=== PATIENT | male | born 1990 | race Caucasian/White ===

== ENCOUNTER 2021-01-19 00:44 | Observation (INO) | payer SELFPAY ==
[2021-01-19] VITALS (7 sets, daily range): BP systolic 102–144; BP diastolic 64–81; PULSE 67–132; RESP 18–22; TEMP 36.1–37; O2SAT 97–98; BMI 24.0
--- NOTE | ~2021-01-19 | XR_ITS ---
EXAMINATION: XR chest 1V portable DATE: 01/19/2021 01:12 INDICATION: Chest pain. TECHNIQUE: A single frontal view of the chest was obtained. COMPARISON: None. FINDINGS: The chest demonstrates clear lungs without pneumonia, pleural effusion, or pneumothorax. Th e heart size is normal. IMPRESSION: 1. No acute cardiopulmonary disease. Reviewed, dictated and finalized at location A.
--- NOTE | 2021-01-19 00:48 | ECG_ITS ---
Measurements Intervals [place] Rate: 98 P: 75 IL: 139 QRS: 66 QRSD: 90 T: 62 QT: 323 QTc: 413 Interpretive Statements SINUS RHYTHM INCOMPLETE RIGHT BUNDLE BRANCH BLOCK MINIMAL Q WAVES- ANTEROLAT/INF LEADS BORDERLINE ECG Electronically Signed On 01-19-2021 9:09:18 CDT by Jovany Loera D.O.
[2021-01-19] MEDS: LORazepam INJ (*CRX) 2 MG/ML VIAL IV PUSH (01:05)
--- NOTE | 2021-01-19 01:30 | PC.NURSE ---
Pt. admits to using speed but states it was a few days ago. Pt. more cooperative c care p given ativan and able to relax at this time.
--- NOTE | 2021-01-19 01:31 | ED.GENADULT ---
HPI - General Adult General Chief complaint: Chest Pain Stated complaint: Chest pain Source: patient Mode of arrival: ambulatory Limitations: altered mental status History of Present Illness HPI narrative: Tanner is a 31M with a PMH of polysubstance abuse and a heart condition (unsure what it is) that presented with chest pain. He appears to be under the influence rhythmically moving, trouble answering questions, limited attention span and occasionally screaming. He reports to using speed 3 days ago. As best as I can gather his chest pain started last week while playing [employer] with his son. It is described as a sharp pain in his chest that does not radiate. It has no relation to food or activity. He admits nausea and vomiting but no lightheadedness or syncope. No fevers or chills. Related Data Home Medications Medication Instructions Recorded Confirmed Unable to Obtain Home Medications 01/19/21 01/19/21 Allergies Allergy/AdvReac Type Severity Reaction Status Date / Time No Known Allergies Allergy Verified 01/19/21 01:33 Review of Systems Constitutional: Constitutional: Denies chills, Denies fatigue, Denies fever(s) and Denies weakness Eyes: Eyes: Reports no additional eye complaints ENT: Reports system reviewed and no additional complaints, except as documented Cardiovascular: Cardiovascular: Reports as per HPI Respiratory: Respiratory: Denies chest congestion, Denies cough, Reports dyspnea and Denies wheezing Gastrointestinal: Gastrointestinal: Reports no additional gastrointestinal complaints Genitourinary: Genitourinary: Reports no additional male genitourinary complaints Musculoskeletal: Musculoskeletal: Reports no additional musculoskeletal complaints Integumentary/Breasts: Skin/Breast: Reports system reviewed and no additional complaints, except as docu Neurologic: Reports system reviewed and no additional complaints, except as documented Psychiatric: Psychiatric: Reports no additional psychiatric complaints Endocrine: Endocrine: Reports no additional endocrine complaints Hematologic/Lymphatic: Hematologic/Lymphatic: Reports no additional hematologic/lymphatic complaints Allergic/Immunologic: Allergic/Immunologic: Reports no additional allergic/immunologic complaints Exam Const: General: alert and confusion Orientation/consciousness: patient oriented x3 Limitations: altered mental status Other: Was screaming unable to sit still holding his chest with a very short attention span until he was given Ativan at which point he calmed down. HENMT: Other: Normocephalic, atraumatic EOMI Eyes: Pupils: Equal, round and reactive pupils present Neck: Neck: normal visual inspection Chest: Chest palpation & inspection: normal inspection of the chest Other: Every time he belched (which was quite often) he grabbed his chest in pain Resp: Effort & Inspection: normal respiratory effort Auscultation: clear to auscultation bilaterally Cardio: Rate: tachycardic Rhythm: regular rhythm Heart sounds: no murmurs GI: Inspection: non-distended GI Palp: Yes Soft to palpation, No Tenderness to palpation present (GI) and No Guarding due to palpation present (GI) Skin: General skin exam: normal color Rashes: no rashes Neuro: General: patient oriented x3 and moves all extremities Extrem: General: normal to inspection Psych: Appearance: disheveled Affect: Anxious affect present Other: Short attention span and went of on many tangents. Course Course Emergency Course: Tanner was given ativan as he was very agitated and could not comply with any medical treatment. After this his EKG was done which showed NSR with a rate of 98, normal axis, and no ST elevation/depression CBC showed mild microcytic anemia. Chemistries were normal. CXR were read as Lungs are clear. He continued to have some chest pain on and off as well as some very dark emesis. Given his emesis, apparent intoxication despite a negative UD
[2021-01-19] MEDS: ONDANSETRON INJ 4 MG/2 ML VIAL IV PUSH (01:32)
[2021-01-19] MEDS: MAG HYDROX/ALUMINUM HYD/SIMETH 30 ML, PHENobarb/HYOSCY/ATROPINE/SCOP 32.4 MG, LIDOCAINE... PO (01:32)
[2021-01-19 01:45] LABS: Basophils Absolute Auto 0.05 K/mm3 (0.00-0.10); Basophils Percent Auto 0.6 % (0.0-1.0); Eosinophils Percent Auto 3.5 % (1.0-6.0); Hematocrit 34.5 % (40.0-54.0); Hemoglobin 11.5 g/dL (14.0-18.0); Immature Granulocyte Absolute 0.04 K/mm3 (0.00-0.00); Immature Granulocyte Percent A 0.5 % (0.0-0.0); Lymphocytes Absolute Auto 2.21 K/mm3 (1.10-4.50); Lymphocytes Percent Auto 25.9 % (18.0-42.0); Mean Corpuscular HGB Conc 33.3 g/dL (32.0-36.0); Mean Corpuscular Hemoglobin 27.6 pg (27.0-31.0); Mean Corpuscular Volume 82.7 fL (78.0-102.0); Mean Platelet Volume 10.2 fl (8.7-11.0); Monocytes Absolute Auto 1.05 K/mm3 (0.10-0.90); Monocytes Percent Auto 12.3 % (2.0-11.0); Neutrophils Absolute Auto 4.9 K/mm3 (1.7-7.2); Neutrophils Percent Auto 57.2 % (50.0-70.0); Platelet Count Result 178 K/mm3 (150-420); Red Blood Count 4.17 M/mm3 (4.70-6.10); Red Cell Distribution Width 12.8 % (11.6-14.4); White Blood Count 8.5 K/mm3 (4.8-10.8)
[2021-01-19 01:56] LABS: INR 1.1; Prothrombin Time 11.4 Seconds (9.50-12.10)
[2021-01-19 02:02] LABS: Alanine Aminotransferase 74 U/L (16-63); Albumin Level 3.7 g/dL (3.4-5.0); Alkaline Phosphatase 70 U/L (46-116); Anion Gap 6 mmol/L (8-16); Aspartate Amino Transferase 39 U/L (15-37); Bilirubin,Total 0.6 mg/dL (0.00-1.00); Blood Urea Nitrogen 21 mg/dL (7-18); Calcium 8.8 mg/dL (8.5-10.1); Carbon Dioxide 28 mmol/L (21-32); Chloride 102 mmol/L (98-108); Estimated CRCL calculation 79 ml/min; Estimated Glomerular Filt Rate > 60; Glucose 99 mg/dL (70-99); NT Pro B Type Natriuretic Pept 62 pg/mL (0-125); Osmolality Calculated 285 mOsm/kg (285-295); Potassium 4.1 mmol/L (3.5-5.1); Sodium 136 mmol/L (136-145); Total Protein 7.2 g/dL (6.4-8.2)
[2021-01-19 02:03] LABS: Lipase 60 U/L (73-393); Troponin I 5.4 ng/L (0.00-60.4)
[2021-01-19 02:21] LABS: Lactic Acid Reflex 1.1 mmol/L (0.4-2.0)
[2021-01-19 03:00] LABS: Amphetamine Screen Urine Negative (Negative); Barbiturate Screen Urine Negative (Negative); Benzodiazepines Screen Urine Negative (Negative); Cannabinoid Screen Urine Negative (Negative); Cocaine Screen Urine Negative (Negative); Methadone Screen Urine Negative (Negative); Opiate Screen Urine Negative (Negative); Phencyclidine Screen Urine Negative (Negative)
[2021-01-19] MEDS: LORazepam INJ (*CRX) 2 MG/ML VIAL 0.5 MG IV PUSH (03:25)
--- NOTE | 2021-01-19 04:17 | ADMGEN ---
This patient, Tanner Rao, was admitted to 2nd Floor Room 205-2. Patient oriented to bed and alarms, pain management, procedures, bathroom and other care routines, personal items, smoking policy, room service/diet, and visiting hours. Patient encouraged to report perceived risks to care and to ask questions if they do not understand what they are told or what they should do.
--- NOTE | 2021-01-19 05:43 | PC.NURSE ---
pt sleeping, no evidence of distress noted, tire layer with alarms on reading SR
[2021-01-19 07:07] LABS: Hematocrit 33.1 % (40.0-54.0); Hemoglobin 11.2 g/dL (14.0-18.0); Mean Corpuscular HGB Conc 33.8 g/dL (32.0-36.0); Mean Corpuscular Hemoglobin 28.1 pg (27.0-31.0); Mean Platelet Volume 10.1 fl (8.7-11.0); Platelet Count Result 160 K/mm3 (150-420); Red Blood Count 3.99 M/mm3 (4.70-6.10); Red Cell Distribution Width 12.9 % (11.6-14.4); White Blood Count 7.6 K/mm3 (4.8-10.8)
--- NOTE | 2021-01-19 08:43 | PM.SD2 ---
Same Day Admit/Disch: HPI History of Present Illness Chief complaint: Chest pain Narrative: Tanner Rao is a 31 year old male who was admitted under Observation for Chest Pain, substance abuse (Pt states he used Speed 4 days ago). Pt states his chest pain would come off and on. 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 He rates the recurring pains as stabbing or crushing with a level 6-7 without any radiation of the pain. Pt states relaxing and sleeping made the pain better. When he woke up afterwards he states his pain was now just a little sore. [facility] Past Medical History Medical History (Updated 01/19/21 @ 09:27 by HERBER Chaudhary) Panic attack as reaction to stress Self diagnosed Seizures Self diagnosed Family History Family History (Updated 01/19/21 @ 09:15 by HERBER Chaudhary) Father Hypertension Social History Social History Smoking status: Current some day smoker Alcohol intake: current Drinks per week: 1 Substance use: current Substance use type: methamphetamine Last use: 01/18/21 Gender identity (if verbalized by the patient): Male Spiritual care concerns: No Same Day Admit/Disch: Med Pre-admit Medications Home Medications Medication Instructions Recorded Confirmed Type No Home Medications 01/19/21 01/19/21 History Exam Narrative: Exam Narrative: Pt currently does not have a PCP and does not take any medications. Admits to use of Speed 4 days ago. Const: General: cooperative, comfortable, no acute distress, alert, awake and tired appearing Nutritional Appearance: average body habitus HENMT: Head: normal to inspection, normocephalic and atraumatic Ears: hearing grossly normal bilaterally Eyes: General: appearance normal, both eyes and all related structures Alignment and Position: alignment normal Neck: Neck: normal visual inspection and no JVD Resp: Effort & Inspection: normal respiratory effort Auscultation: clear to auscultation bilaterally Cardio: Jugular venous distension: no JVD Rate: regular rate Heart sounds: S1 normal heart sound present, S2 normal heart sound present, no click, no gallops, no murmurs and no rubs GI: GI Palp: Yes Soft to palpation and No Tenderness to palpation present (GI) Auscultation: normal bowel sounds Back/Spine/Pelvis: Back: no CVA tenderness Thoracic/Lumbar Spine: thoracic and lumbar spine normal to inspection Skin: General skin exam: normal color Neuro: General: oriented to person, oriented to place and oriented to time Cranial nerves: Yes CN's II-XII intact bilaterally (grossly intact) Extrem: General: normal to inspection and no pedal edema Psych: Appearance: grossly normal Speech and movement: Normal speech and movement present Attitude: cooperative DS: Data Data Completed and Pending Labs on day of discharge: Labs from last 24 hours 01/19/21 01/19/21 01/19/21 07:01 07:01 01:38 WBC 7.6 RBC 3.99 L Hgb 11.2 L Hct 33.1 L MCV 83.0 MCH 28.1 MCHC 33.8 RDW 12.9 Plt Count 160 MPV 10.1 Immature Gran % (Auto) Neut % (Auto) Lymph % (Auto) [place] % (Auto) Eos % (Auto) Baso % (Auto) Lymph # (Auto) [place] # (Auto) Eos # (Auto) Baso # (Auto) Abs Immat Gran (auto) Absolute Neuts (auto) Absolute Nucleated RBC Nucleated RBC % PT INR Sodium Potassium Chloride Carbon Dioxide Anion Gap BUN Creatinine Estim Creat Clear Calc Estimated GFR Glucose Calculated Osmolality Lactic Acid Calcium Total Bilirubin AST ALT Alkaline Phosphatase Troponin I 4.0 5.4 NT-Pro-B Natriuret Pep Total Protein Albumin Lipase 60 L Urine Opiates Screen Urine Methadone Screen Ur Barbiturates Screen Ur Phencyclidine Scrn Ur Amphetamine Screen U Benzodiazepines Scrn Urine Cocaine Screen U Cannabinoids
--- NOTE | 2021-01-19 09:54 | PC.NURSE ---
Patient reports no home medications and no primary care doctor
--- NOTE | 2021-01-19 10:47 | PC.NURSE ---
Patient discharged following observation admit to home. Patient had left phone at home and had no ride or a number for anyone he could call for ride. He stated he did not live far and was able to walk home and refused staff to accompany to main entrance. IV was removed and instructed to follow up with primary. All personal items sent with patient home.
--- NOTE | 2021-01-24 13:25 | PC.NURSE ---
Unable to contact for discharge call back.
== END 2021-01-19 10:36 | disposition home or self-care (01) ==
LOC: CHSED 03:25 → CHS2ND 06:34
PROVIDERS: Admitting Provider Family Medicine; Emergency Provider Family Medicine; Visit Provider Family Medicine
DX: R07.9 Chest pain, unspecified (principal); F15.90 Other stimulant use, unspecified, uncomplicated; F17.200 Nicotine dependence, unspecified, uncomplicated
CPT/HCPCS: 36415; 51701; 71045; 80053; 80307; 83605; 83690; 83880; 84484; 85025; 85027; 85610; 93005; 96374; 96375; 96376; 99285; A9270; G0378; G0379; J2060; J2405

== ENCOUNTER 2024-10-17 07:39 | Emergency (ER) | payer SELFPAY ==
--- OUTSIDE RECORDS SUMMARY | 2024-10-17 07:41 | XMS_ITS | Referral Summary ---
Author Organization [facility] Address [address] [place] [address] Care Team Providers Care Quality Control Assessor Name Role Phone Unavailable Primary Care Provider Unavailabl e Source Comments [facility],non-owned Affiliates and Associated Physician Practices is amultiple site organization consisting of ambulatory clinics and hospital sitesin [place], [place], [place] and [place]. This disclosure is being madepursuant to the Care Everywhere program and may not contain all information available regarding this patient. Last updated 18.[employer] [facility] Allergies No known active allergies Medications Be aware that medications may not be up to date on this document. Always verify current medications with the patient. No known medications Social History Tobacco Use Types Packs/Day Years Used Date Smoking Tobacco: Some Days Smokeless Tobacco: Never Alcohol Use Standard Drinks/Week Comments Yes 0 (1 standard drink = 0.6 oz pur e alcohol) occasional Sex and Gender Information Value Date Recorded Sex Assigned at Not on file Gender Identity Not on file Sexual Orientation Not on file Last Filed Vital Signs Vital Sign Reading Time Taken Comments Blood Pressure 95/55 03/14/2019 3:00 PM CDT Pulse 53 03/14/2019 3:00 PM CDT Temperature 36.8 ??C (98.3 ??F) 03/14/2019 12:13 PM C DT Respiratory Rate 10 03/14/2019 3:00 PM CDT Oxygen Saturation 99% 03/14/2019 3:00 PM CDT Inhaled Oxygen Concentration - - Weight 65.8 kg (145 lb) 03/14/2019 12:13 PM CDT Height 167.6 cm (5' 6 ) 03/14/2019 12:13 PM CDT Body Mass Index 23.4 03/14/2019 12:13 PM CDT Plan of Treatment Not on file
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
--- OUTSIDE RECORDS SUMMARY | 2024-10-17 07:41 | XMS_ITS | Clinical Summary ---
Author Organization [facility] Address [address] [place] [address]. 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 Gender Identity Not on file Sexual Orientation Not on file Last Filed Vital Signs Vital Sign Reading Time Taken Comments Blood Pressure 118/72 02/09/2020 8:54 AM CDT Pulse 72 02/09/2020 8:54 AM CDT Temperature 36.2 ??C (97.1 ??F) 02/08/2020 7:25 PM CD T Respiratory Rate 16 02/09/2020 8:54 AM CDT Oxygen Saturation 98% 02/09/2020 8:54 AM CDT Inhaled Oxygen Concentration - - Weight 72.6 kg (160 lb) 02/08/2020 7:25 PM CDT Height 180.3 cm (5' 11 ) 02/08/2020 7:25 PM CDT Body Mass Index 22.32 02/08/2020 7:25 PM CDT Plan of Treatment Health Maintenance Due Date Last Done Comments Annual Physical 1993 Hepatitis C 01/11/2008 DTaP, Tdap and Td Vaccines ( 1 - Tdap) 2009 Hepatitis B Vaccines (1 of 3 - 19+ 3-dose series) 2009 COVID-19 Vaccine (2023-2 5 season) 2024 Influenza Adult (#1) 2024 HPV Vaccines Aged Out No longer eligi ble based on patient's age to complete this topic Meningococcal Vaccine Aged Out No abraham stepehn eligible based on patient's age to complete this topic Pneumococcal Vaccine: Pediat rics (0 to 5 Years) and At-Risk Patients (6 to 64 Years) Aged Out No longer eligible b ased on patient's age to complete this topic RSV Immunizations Under 20 Months Aged Out No longer eligible based on patient's age to complete this topic
--- OUTSIDE RECORDS SUMMARY | 2024-10-17 07:41 | XMS_ITS | Clinical Summary ---
Author Organization [facility] Address [address] [place] [address] Care Team Providers Care Natural Sciences Manager Name Role Phone Unavailable Primary Care Provider Unavailabl e Source Comments [facility],non-owned Affiliates and Associated Physician Practices is amultiple site organization consisting of ambulatory clinics and hospital sitesin [place], [place], [place] and [place]. This disclosure is being madepursuant to the Care Everywhere program and may not contain all information available regarding this patient. Last updated 18.[employer] Allergies No known active allergies Medications Be [...] 03/14/2019 12:13 PM CDT Plan of Treatment Health Maintenance Due Date Last Done Comments HIV SCREENING 2005 HEPATITIS C SCREENING 01/06/2008 DTAP/TDAP/TD VACCINES (1 - Tdap) 2009 HEPATITIS B VACCINE (1 of 3 - 19+ 3-dose series) 2009 PNEUMOCOCCAL VACCINE (1 of 2 - PCV) 2009 COVID-19 VACCINE (1 - 2023-2 5 season) 2024 INFLUENZA VACCINE (#1) 2024 DEPRESSION SCREENING 09/23/2024 ZOSTER VACCINE (1 of 2) 01/11/2040 HIB VACCINE Aged Out No longer eligi ble based on patient's age to complete this topic HPV VACCINE Aged Out No longer eligi ble based on patient's age to complete this topic MENINGOCOCCAL (Group B) VACCINE Aged Out No longer eligible based on patient's age to complete this topic MENINGOCOCCAL VACCINE Aged Out No abraham stephen eligible based on patient's age to complete this topic
--- OUTSIDE RECORDS SUMMARY | 2024-10-17 07:41 | XMS_ITS | Encounter Summary ---
Author Organization [facility] Address [address] [place] [address]. 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
[2024-10-17 07:52] VITALS: BP 154/97; PULSE 85; RESP 18; TEMP 36.1; O2SAT 95
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
--- OUTSIDE RECORDS SUMMARY | 2024-10-17 08:04 | XMS_ITS | Clinical Summary ---
Author Organization [facility] Address [address] [place] [address]. 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
--- OUTSIDE RECORDS SUMMARY | 2024-10-17 08:04 | XMS_ITS | Clinical Summary ---
Author Organization [facility] Address [address] [place] [address] Care Team Providers Care Shop Steward Name Role Phone Unavailable Primary Care Provider Unavailabl e Source Comments [facility],non-owned Affiliates and Associated Physician Practices is amultiple site organization consisting of ambulatory clinics and hospital sitesin [place], [place], [place] and [place]. This disclosure is being madepursuant to the Care Everywhere program and may not contain all information available regarding this patient. Last updated 18.[employer] Allergies No known active allergies Medications Be [...]
--- OUTSIDE RECORDS SUMMARY | 2024-10-17 08:04 | XMS_ITS | Referral Summary ---
Author Organization [facility] [employer] Address [address] [place] [address] Care Team Providers Care Neurological Surgeon Name Role Phone Unavailable Primary Care Provider Unavailabl e Source Comments [facility] [employer],non-owned Affiliates and Associated Physician Practices is amultiple site organization consisting of ambulatory clinics and hospital sitesin [place], [place], [place] and [place]. This disclosure is being madepursuant to the Care Everywhere program and may not contain all information available regarding this patient. Last updated 18.[employer] Allergies No known active allergies Medications Be [...]
--- OUTSIDE RECORDS SUMMARY | 2024-10-17 08:04 | XMS_ITS | Patient Health Summary ---
Author Organization [facility] Address [address] [place] [address] Care Team Providers Care Computational Chemist Name Role Phone Unavailable Primary Care Provider Unavailabl e Note from [facility],non-owned Affiliates and Associated Physician Practices is amultiple site organization consisting of ambulatory clinics and hospital sitesin [place], [place], [place] and [place]. This disclosure is being madepursuant to the Care Everywhere program and may not contain all information available regarding this patient. Last updated 18.[employer] [facility] Allergies No known active allergies Medications Be [...] (Bezet) 441 ms [facility] MUSE Calculated P [place] 72 degrees [facility] MUSE Calculated R [place] 81 degrees [facility] MUSE Calculated T [place] 44 degrees [facility] M[facility] Interpretation EKG Normal sinus rhythm Normal ECG No previous ECGs available Confirmed by ADELITA GRAY MD ([id number]) on 03/16/2019 12:25:14 PM [facility] MUSE 03/14/2019 [...] Cardona DO LAB - CHEMISTRY ORDE SALVATORE [facility] Organization Address City/State/ZIP Co de Phone Number [facility] [address] [place] [address] * (ABNORMAL) CBC W AUTO DIFFERENTIAL (03/14/2019 12:09 PM CDT) Only the most recent of2 resultswithin the time period is included. WBC 6.2 4.4 - 10.7 x10E9/L 03/14/2019 12:20 PM CDT [facility] WBC Corrected x10E9/L 03/14/2019 12:20 PM CDT [facility] RBC 4.59 3.80 - 5.40 x10E12/L 03/14/2019 12:20 PM CDT [facility] Hemoglobin 13.0 12.0 - 17.6 gm/dL 03/14/2019 12:20 PM CDT [facility] Hematocrit 39.8 35.2 - 51.7 % 03/14/2019 12:20 PM CDT [facility] MCV 86.7 80.7 - 98.3 fl 03/14/2019 12:20 PM CDT [facility] MCH 28.3 26.7 - 34.0 pg 03/14/2019 12:20 PM CDT [facility] MCHC 32.7 30.8 - 35.9 gm/dL 03/14/2019 12:20 PM CDT [facility] Platelet Count 140(L) 153 - 416 x10E9/L 03/14/2019 12:20 PM CDT [facility] RDW-CV 12.3 12.1 - 14.9 % 03/14/2019 12:20 PM CDT [facility] MPV 10.9 9.4 - 12.9 fl 03/14/2019 12:20 PM CDT [facility] Neutrophils % 38.9(L) 44.0 - 73.0 % 03/14/2019 12:20 PM CDT [facility] Lymphocytes % 45.3(H) 20.0 - 43.0 % 03/14/2019 12:20 PM CDT [facility] Monocytes % 10.7 5.0 - 13.0 % 03/14/2019 12:20 PM CDT [facility] Eosinophils % 3.6 0.0 - 6.0 % 03/14/2019 12:20 PM CDT [facility] Basophils % 1.0 0.0 - 2.0 % 03/14/2019 12:20 PM CDT [facility] Immature Granulocytes 0.5 0 - 1 % 03/14/2019 12:20 PM CDT [facility] Neutrophil Absolute 2.41 2.01 - 7.14 x10E9/L 03/14/2019 12:20 PM CDT [facility] Lymphocytes Absolute 2.80 1.07 - 3.94 x10E9/L 03/14/2019 12:20 PM CDT [facility] Monocytes Absolute 0.66 0.26 - 1.07 x10E9/L 03/14/2019 12:20 PM CDT [facility] Eosinophils Absolute 0.22 0 - 0.47 x10E9/L 03/14/2019 12:20 PM CDT [facility] Basophils Absolute 0.06 0 - 0.08 x10E9/L 03/14/2019 12:20 PM CDT [facility] Immature Granulocytes Absolute 0.03 0.00 - 0.06 x10E9/L 03/14/2019 12:20 PM CDT [facility] nRBC Auto 0 /100 WBC 03/14/2019 12:20 PM CDT [facility] Blood BLOOD SPECIMEN / Unknown Venipuncture / Unknown 03/14/2019 12:09 PM CDT 03/14/2019 12:13 PM CDT Tony Cardona DO LAB - HEMATOLOGY ORD ERABLES [facility] [address] [place] [address] * (ABNORMAL) COMPREHENSIVE METABOLIC PANEL (03/14/2019 12:09 PM CDT) Only the most recent of2 resultswithin the time period is included. Glucose 155(H) 74 - 106 mg/dL 03/14/2019 12:35 PM CDT [facility] Sodium 138 136 - 145 mmol/L 03/14/2019 12:35 PM CDT [facility] Potassium 3.1(L) 3.5 - 5.1 mmol/L 03/14/2019 12:35 PM CDT [facility] Chloride 104 98 - 107 mmol/L 03/14/2019 12:35 PM CDT [facility] CO2 25 23 - 31 mmol/L 03/14/2019 12:35 PM CDT [facility] Calcium 8.9 8.4 - 10.2 mg/dL 03/14/2019 12:35 PM CDT [facility] Anion Gap 9 8 - 16 mmol/L 03/14/2019 12:35 PM CDT [facility] BUN 14 8.9 - 20.6 mg/dL 03/14/2019 12:35 PM CDT [facility] Creatinine 1.14 0.73 - 1.18 mg/dL 03/14/2019 12:35 PM CDT [facility] Alkaline Phosphatase 79 40 - 150 U/L 03/14/2019 12:35 PM CDT [facility] ALT 50 13 - 61 U/L 03/14/2019 12:35 PM CDT [facility] AST 26 5 - 34 U/L 03/14/2019 12:35 PM CDT [facility] Protein Total 7.0 6.4 - 8.3 gm/dL 03/14/2019 12:35 PM CDT [facility] Albumin 4.2 3.5 - 5.2 gm/dL 03/14/2019 12:35 PM CDT [facility] Bilirubin Total 1.1 0.2 - 1.2 mg/dL 03/14/2019 12:35 PM CDT [facility] eGFR by MDRD >60 >60 mL/min/1.7 3m2 03/14/2019 12:35 PM CDT [facility] eGFR by MDRD >60 >60 mL/min/1.7 3m2 03/14/2019 12:35 PM CDT [facility] Blood BLOOD SPECIMEN / Unknown Venipuncture / Unknown 03/14/2019 12:09 PM CDT 03/14/2019 12:13 PM CDT Narrative [facility] - 03/14/2019 12:35 PM CDT Attention clinician: BUN Reference Range has changed. Tony Cardona DO LAB - CHEMISTRY ORDE SALVATORE [facility] [address] [place] [address] * CARDIAC RHYTHM STRIP ORDER (05/29/2018 1:58 PM CDT) Narrative 05/29/2018 1:58 PM CDT Ordered by an unspecified provider. Scanned Document CARDIAC SERVICES ORD ERABLES * XR HAND 3+ VW LEFT [id number] (05/28/2018 6:39 PM CDT) Anatomical Region Laterality [...] RDERABLES * XR ANKLE 3+ VW RIGHT [id number] (05/28/2018 6:35 PM CDT) Anatomical Region Laterality [...] RDERABLES * XR FOOT 3+ VW RIGHT [id number] (05/28/2018 6:35 PM CDT) Anatomical Region Laterality [...] <10 mg/dL 05/28/2018 6:5 6 PM CDT [facility] Blood BLOOD SPECIMEN / Unknown Port / Unknown 05/28/2018 6:30 PM CDT 05/28/2018 6:33 PM CDT Narrative [facility] - 05/28/2018 6:56 PM CDT For Medical Use Only Stephen Angel DO LAB - CHEMISTRY ORDE SALVATORE Performing Organization Address [facility]/ZIP Co de Phone Number [facility] [address] * TSH (05/28/2018 6:30 PM CDT) TSH 1.983 0.35 - 4.94 uIU/mL 05/28/2018 7:19 PM CDT [facility] Blood BLOOD SPECIMEN / Unknown Port / Unknown 05/28/2018 6:30 PM CDT 05/28/2018 6:33 PM CDT Stephen Angel DO LAB - CHEMISTRY ORDJaclyn CHASE Performing Organization Address [facility] Co de Phone Number [facility] [address] * (ABNORMAL) SALICYLATE LEVEL BLOOD (05/28/2018 6:30 PM CDT) Salicylate <5.0(L) 15.0 - 30.0 mg/dL 05/28/2018 7:07 PM CDT [facility] Blood BLOOD SPECIMEN / Unknown Port / Unknown 05/28/2018 6:30 PM CDT 05/28/2018 6:33 PM CDT Stephen Angel DO LAB - CHEMISTRY ORDJaclyn CHASE Performing Organization Address [facility] Co de Phone Number [facility] [address] [place] [address] * (ABNORMAL) ACETAMINOPHEN LEVEL (05/28/2018 6:30 PM CDT) Acetaminophen <0.6(L) 10.0 - 30.0 ug/mL 05/28/2018 7:07 PM CDT [facility] Blood BLOOD SPECIMEN / Unknown Port / Unknown 05/28/2018 6:30 PM CDT 05/28/2018 6:33 PM CDT Narrative [facility] - 05/28/2018 7:07 PM CDT Significantly reduced Acetaminophen recovery has been demonstrated in situations where testing has been performed immediately after introduction of N- acetylcysteine (NAC). Stephen Angel DO LAB - CHEMISTRY ORDE RABLES [facility] [address] * CT CERVICAL SPINE WO CONTRAST [id number] (01/14/2018 4:56 PM CDT) Anatomical Region Laterality [...] CT ORDERABLES * CT BRAIN WO CONTRAST [id number] (01/14/2018 4:55 PM CDT) Anatomical Region Laterality [...] intracranial hemorrhage or other intracranial abnormality identified. Ysah Kebede MD CT ORDERABLES
--- OUTSIDE RECORDS SUMMARY | 2024-10-17 08:04 | XMS_ITS | Encounter Summary ---
Author Organization [facility] Address [address] [place] [address]. 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
[2024-10-17] MEDS: TETANUS,DIPHTHERIA,AC PERTUSSIS ADULT 0.5 ML (ADACEL) IM (08:07)
== END 2024-10-17 08:13 | disposition home or self-care (01) ==
LOC: CHSED 08:03
PROVIDERS: Emergency Provider Emergency Medicine
DX: S91.132A Puncture wound without foreign body of left great toe without damage to nail, initial encounter (principal); F17.210 Nicotine dependence, cigarettes, uncomplicated; Z23 Encounter for immunization; W45.0XXA Nail entering through skin, initial encounter
CPT/HCPCS: 90471; 90715; 99283